=== PATIENT | female | born 1975 | race Caucasian/White ===

== ENCOUNTER → 2018-07-17 | Outpatient (CLI) | payer BC ==
[2004-06-13 06:52] VITALS: TEMP 98.1
[~2018-07-17] MED LIST: ACUTANE; LORTAB 5/500 501 TAB PO
== END ==
LOC: MC.RAD 10:07
DX: Z12.31 Encounter for screening mammogram for malignant neoplasm of breast (principal)

== ENCOUNTER → 2021-08-31 | Outpatient (CLI) | payer BC ==
[2004-06-13 06:52] VITALS: TEMP 98.1
== END ==
LOC: MC.RAD 11:30
DX: Z12.31 Encounter for screening mammogram for malignant neoplasm of breast (principal)